=== PATIENT | female | born 1965 | race Two or more races ===

== ENCOUNTER 2016-10-15 20:40 | Emergency (ER) | payer SELFPAY ==
[~2016-10-15] VITALS: Ht 162.6 cm; Wt 72.6 kg
[2016-10-15] MEDS ORDERED: Norco 5mg/325mg tab ORAL ONE (21:15)
--- NOTE | 2016-10-15 21:38 | Emergency Room Report ---
History of Present Illness General Chief Complaint: Lower Extremity Injury Source: Patient Present Illness HPI Is a 51-year-old female with no significant past medical problem. She presents with chief complaint of ankle pain. Onset was acute. She was walking down the steps and missed a step and twisted her ankle. She has swelling to the left lower extremity and ankle. No loss of consciousness. No other injury. Unable to bear weight. Pain is 10 out of 10. She has something is a numbness to that area also. Allergies: Coded Allergies: MORPHINE (Verified Allergy, Unknown, 10/15/16) Patient History Past Medical History: see triage record, old chart reviewed Past Surgical History: other Pertinent Family History: none Social History: Denies: smoking Last Menstrual Period: NOT ANYMORE Now: No Immunizations: other Reviewed Nursing Documentation: PMH: Agreed, PSxH: Agreed Nursing Documentation-PMH Past Medical History: No Stated History Hx Hypertension: Yes Review of Systems Eye: Denies: blurred vision, eye pain ENT: Denies: ear pain, nose congestion, throat swelling Respiratory: Denies: cough, shortness of breath Cardiovascular: Denies: chest pain, palpitations Gastrointestinal: Denies: abdominal pain, diarrhea, nausea, vomiting Musculoskeletal: Reports: joint pain, joint swelling, Denies: back pain Skin: Denies: rash Neurological: Denies: headache, numbness Endocrine: Denies: increased thirst, increased urine Hematologic/Lymphatic: Denies: easy bruising All Other Systems: negative except mentioned in HPI Physical Exam Vital Signs Date Time Temp Pulse Resp B/P Pulse Ox O2 Delivery O2 Flow Rate FiO2 10/15/16 20:44 98.4 83 18 159/95 95 Room Air vitals with hypertension Sp02 EP Interpretation: reviewed, normal General Appearance: well appearing, no apparent distress, alert Head: normocephalic, atraumatic Eyes: bilateral eye EOMI, bilateral eye PERRL ENT: hearing grossly normal, normal pharynx Neck: full range of motion, supple, no meningismus Respiratory: chest non-tender, lungs clear, normal breath sounds Cardiovascular #1: regular rate, rhythm, no murmur Gastrointestinal: normal bowel sounds, non tender, no mass, no organomegaly, no bruit, non-distended Musculoskeletal: back normal, normal range of motion, other - Left lower extremity: She has significant edema to the lateral malleolus and distal tibial area. Tender to palpation. Ankle is grossly stable but limited secondary to pain. Sensation normal. Dorsalis pedis pulses 2+. TTP over base of 5th MT bone. Psychiatric: mood/affect normal Skin: warm/dry Procedures Splinting Splinting : Consent: Verbal Location: Left lower extremity Hand-Made Type: plaster Splint: poserior short Pre-Proc Neuro Vasc Exam: normal Post-Proc Neuro Vasc Exam: normal Patient Tolerated: Well Complications: None Progress crutches given Medical Decision Making Diagnostic Impression: Primary Impression: Displaced fracture of fifth metatarsal bone, left foot, initial encounter for closed fracture Additional Impression: High ankle sprain of left lower extremity Qualified Codes: S93.432A - Sprain of tibiofibular ligament of left ankle, initial encounter ER Course Patient presents with a left fifth metatarsal fracture in height ankle sprain. She splinted. We'll refer her to orthopedic Dr. No evidence of any dislocation. Other X-Ray Diagnostic Results Other X-Ray Diagnostic Results : X-Ray Ordered: X-rays of left foot Date: October 15, 2016 Time: 22:08 EP Interpretation: Yes Findings: no dislocation, other - Comminuted left fifth metatarsal fracture Number of Views: 3 Other Impression x-rays left ankle: interpreted by me. 3 views. soft tissue swelling. Questionable fracture of the fifth metatarsal bone. No dislocation. Last Vital Signs Date Time Temp Pulse Resp B/P Pulse Ox O2 Delivery O2 Flow Rate FiO2 10/15/16 20:44 98.4 83 18 159/95 95 Room Air Status: improved Disposition: HOME, SELF-CARE Condition: Stable Scripts Hydrocodone/Acetaminophen 5-325* (HYDROCODONE/ACETAMINOPHEN 5-325*) 1 Each Tablet 1 TAB ORAL Q6H Y for For Pain, #30 TAB 0 Refills Prov: JUSTO CAT M.D. 10/15/16 Referrals: NOT CHOSEN IPA/,REFERRING (PCP) JUSTO CAT M.D. October 15, 2016 21:38
[2016-10-15] MEDS ORDERED: HYDROCODON-ACE1 EA15 ORAL (22:09)
[2016-10-15 22:45] VITALS: BP 154/100
--- NOTE | 2016-10-17 08:39 | Diagnostic Imaging Report ---
Indication: TRAUMA Technique: 3 views left foot Comparison: none Findings: There are small plantar and calcaneal spurs. There is a comminuted fracture of the distal fifth metatarsal shaft which is minimally displaced. No other acute fractures. No dislocations. There is hallux valgus and bunion formation. Impression: Positive for fifth metatarsal fracture Hallux valgus and bunion formation This agrees with the preliminary interpretation provided by the emergency room physician
--- NOTE | 2016-10-17 08:40 | Diagnostic Imaging Report ---
Indication: TRAUMA Technique: 3 views of the ankle Comparison: none Findings: There is soft tissue swelling over the lateral malleolus. There is a sliver of an ossific density at the tip of the fibula, could represent a small avulsion fracture, age indeterminate. There is a comminuted fracture of the distal fifth metatarsal shaft. No dislocations. There are plantar and calcaneal spurs. Impression: Lateral malleolar soft tissue swelling Equivocal small distal fibular avulsion fracture. Metatarsal fracture-see also separate foot radiograph report Other findings as noted This agrees with the preliminary interpretation provided by the emergency room physician
== END 2016-10-15 22:45 | disposition home or self-care (01) ==
LOC: EMR 21:07
DX: S92.352A Displaced fracture of fifth metatarsal bone, left foot, initial encounter for closed fracture (principal); S93.432A Sprain of tibiofibular ligament of left ankle, initial encounter; W19.XXXA Unspecified fall, initial encounter; Y93.9 Activity, unspecified; Y92.9 Unspecified place or not applicable; Z88.6 Allergy status to analgesic agent; I10 Essential (primary) hypertension
CPT/HCPCS: 29515; 99283; 99284

== ENCOUNTER 2018-07-12 11:40 | Emergency (ER) | payer SELFPAY ==
[~2018-07-12] VITALS: Ht 157.5 cm; Wt 74.8 kg
[~2018-07-12 11:40] MED LIST: HYDROCODON-ACE1 EA15 ORAL
[2018-07-12 11:47] VITALS: BP 134/93
--- NOTE | 2018-07-12 11:57 | NUR ---
ED Nurse Note: Pt from home came in due to rashes and edema on her neck. Pt also c/o abd pain with N/V for a couple of days. Also has body aches, joint pain and fever at home. Pt is AAO x4, ambulatory with non labored breathing.
[2018-07-12] MEDS ORDERED: Sodium Chloride 500ML 500 ML IV ONE (12:15)
[2018-07-12 12:53] LABS: ANION GAP 12 mmol/L (5-15); BLOOD UREA NITROGEN 17 mg/dL (7-18); CALCIUM 9.1 MG/DL (8.5-10.1); CARBON DIOXIDE 25 MMOL/L (21-32); CHLORIDE 99 MMOL/L (98-107); CREATININE 0.8 MG/DL (0.55-1.30); POTASSIUM 3.6 MMOL/L (3.5-5.1); SODIUM 136 MMOL/L (136-145)
[2018-07-12 12:58] LABS: ALANINE AMINOTRANSFERASE 29 U/L (12-78); ALBUMIN 3.9 G/DL (3.4-5.0); ALBUMIN/GLOBULIN RATIO 1.1 (1.0-2.7); ALKALINE PHOSPHATASE 62 U/L (46-116); ASPARTATE AMINO TRANSFERASE 27 U/L (15-37); BILIRUBIN,TOTAL 0.5 MG/DL (0.2-1.0)
--- NOTE | 2018-07-12 13:00 | NUR ---
Ethan luciano in EDM - 07/12/18 at 1402 by BEENA ED Nurse Note: [facility] Still having body aches.
--- NOTE | 2018-07-12 13:00 | NUR ---
ED Nurse Note: Pt ambulated to the restroom with steady gait. Still having body aches.
[2018-07-12 13:06] LABS: APPEARANCE,URINE SLIGHTLY CLOUDY; BILIRUBIN, URINE NEGATIVE (NEGATIVE); COLOR,URINE BROWN; GLUCOSE, URINE (UA) NEGATIVE (NEGATIVE); KETONES,URINE 1+ (NEGATIVE); LEUKOCYTE ESTERASE ,URINE 3+ (NEGATIVE); NITRITE,URINE POSITIVE (NEGATIVE); PH,URINE 6 (4.5-8.0); PROTEIN,URINE 2+ (NEGATIVE); UROBILINOGEN,URINE 1 MG/DL (0.0-1.0)
[2018-07-12 13:16] LABS: HEMATOCRIT 39.5 % (37.0-47.0); HEMOGLOBIN 13.8 G/DL (12.0-16.0); MEAN CORPUSCULAR VOLUME 86 FL (80-99); PLATELET COUNT 203 K/UL (150-450); RED BLOOD COUNT 4.59 M/UL (4.20-5.40); RED CELL DISTRIBUTION WIDTH 11.9 % (11.6-14.8); WHITE BLOOD COUNT 3.2 K/UL (4.8-10.8)
--- NOTE | 2018-07-12 13:43 | Emergency Room Report ---
History of Present Illness General Chief Complaint: General Complaint Source: Patient Present Illness HPI 53-year-old female with no significant past medical history here complaining of 2 days of multiple bouts of non-bloody vomiting and diarrhea with diffuse abdominal pain. patient reports that her symptoms started 2 days ago after eating a home-cooked meal complaining of chills and fever. She further complains of cough with some clear phlegm. Denies SOB, wheezing, chest pain, dizziness and headache. She has been able to take oral hydration and some solid food. She also noticed a very pruritic rash on her neck this morning. Denies difficulty swallowing, denies difficulty breathing, denies coming in contact with any allergens such as new soap or detergent. Denies any food allergy.Denies dysuria, urinary frequency and hematuria Allergies: Coded Allergies: MORPHINE (Verified Allergy, Unknown, 10/15/16) Patient History Past Medical History: see triage record Past Surgical History: unable to obtain Pertinent Family History: none Last Menstrual Period: none Now: No Immunizations: UTD Reviewed Nursing Documentation: PMH: Agreed; PSxH: Agreed Nursing Documentation-PMH Past Medical History: No History, Except For Hx Hypertension: Yes Review of Systems All Other Systems: negative except mentioned in HPI Physical Exam Vital Signs Date Time Temp Pulse Resp B/P (MAP) Pulse Ox O2 Delivery O2 Flow Rate FiO2 07/12/18 11:47 99.0 18 134/93 99 Room Air 07/12/18 11:47 93 Sp02 EP Interpretation: reviewed, normal General Appearance: normal inspection, well appearing, no apparent distress Head: normocephalic, atraumatic Eyes: bilateral eye normal inspection, bilateral eye PERRL ENT: normal ENT inspection, hearing grossly normal, normal pharynx, no angioedema, normal voice, other - airway is clear and no anaphylaxis noted Neck: normal inspection, full range of motion, supple Respiratory: normal inspection, chest non-tender, lungs clear, normal breath sounds, no rhonchi, no wheezing Cardiovascular #1: normal inspection, normal peripheral pulses, regular rate, rhythm, no gallop, no murmur Gastrointestinal: normal inspection, normal bowel sounds, non tender, soft, no mass, no peritonitis, no guarding, other - McBurney's and off symptoms negative Rectal: deferred Genitourinary: no CVA tenderness Musculoskeletal: normal inspection, back normal Neurologic: normal inspection, alert, oriented x3 Psychiatric: normal inspection, judgement/insight normal Skin: normal inspection, normal color, no rash, warm/dry, well hydrated, normal turgor Lymphatic: normal inspection, no adenopathy Medical Decision Making PA Attestation DIAGNOSES AND TREATMENT PLANS ARE REVIEWED AND DISCUSSED WITH MY SUPERVISING PHYSICIAN DR. Mike Diagnostic Impression: Primary Impression: Influenza A Additional Impressions: Allergic dermatitis due ingested food UTI (urinary tract infection) ER Course 53-year-old female with no significant past medical history here complaining of 2 days of multiple bouts of non-bloody vomiting and diarrhea with diffuse abdominal pain. patient reports that her symptoms started 2 days ago after eating a home-cooked meal complaining of chills and fever. She further complains of cough with some clear phlegm. Denies SOB, wheezing, chest pain, dizziness and headache. She has been able to take oral hydration and some solid food. She also noticed a very pruritic rash on her neck this morning. Denies difficulty swallowing, denies difficulty breathing, denies coming in contact with any allergens such as new soap or detergent. Denies any food allergy.Denies dysuria, urinary frequency and hematuria Ddx considered but are not limited to a influenza A, viral gastroenteritis, appendicitis, allergic dermatitis, anaphylaxis, UTI Vital signs: are WNL, pt. is afebrile H&PE are most consistent with viral gastroenteritis secondary to influenza A trauma allergic dermatitis, UTI asymptomatic and no treatment needed follow up with her primary care provider for UTI if symptoms ORDERS: IV fluids, CBC, CMP, UA, influenza swab, Zofran,Tamiflu, Robitussin, hydrocortisone cream ED INTERVENTIONS:IV fluid DISCHARGE: At this time pt. is stable for d/c to home. Will provide printed patient care instructions, and any necessary prescriptions. Care plan and follow up instructions have been discussed with the patient prior to discharge. positive influenza A positive leuks; says a urine however asymptomatic Last Vital Signs Date Time Temp Pulse Resp B/P (MAP) Pulse Ox O2 Delivery O2 Flow Rate FiO2 07/12/18 11:57 93 18 Room Air 07/12/18 11:47 99.0 134/93 99 Disposition: HOME, SELF-CARE Condition: Stable Scripts Dextromethorphan Hbr/Chlor-Mal (ROBITUSSIN LONG-ACTING LIQ) 118 Ml Liquid 5 ML PO TID, #118 ML Prov: Veronica Gan 07/12/18 Hydrocortisone (Hydrocortisone Cream 2.5%) Y Cream.appl 1 APPLIC TP BID, #40 GM Prov: Veronica Gan 07/12/18 Oseltamivir Phosphate (Tamiflu) 75 Mg Capsule 75 MG ORAL TWICE A DAY for 5 Days, #10 CAP Prov: Veronica Gan 07/12/18 Ondansetron (Zofran) 4 Mg Tablet 4 MG ORAL Q6H PRN for Nausea & Vomiting, #20 TAB Prov: Veronica Gan 07/12/18 Patient Instructions: Contact Dermatitis, [id number], Urinary Tract Infection , [id number], Viral Gastroenteritis, Adult, [id number] Additional Instructions: follow with primary care provider if the rash continues to be seen by an blogs manager or black topper, banana rice piece of toast applesauce is advised to stay away from spicy and acidic foods and drink a lot of electrolyte water. Veronica Gan Jul 12, 2018 13:43
[2018-07-12] MEDS ORDERED: HYDROCORTISONE30 G2 TP (13:46)
[2018-07-12] MEDS ORDERED: TAMIFLU75 MG ORAL (13:46)
[2018-07-12] MEDS ORDERED: ZOFRAN4 M1 ORAL (13:46)
[2018-07-12] MEDS ORDERED: ROBITUSSIN LON118 ML PO (13:46)
[2018-07-12 13:57] VITALS: BP 134/96
--- NOTE | 2018-07-12 13:57 | NUR ---
ED Nurse Note: Pt cleared by ER MD for discharge. ACI/prescription was given and explained to pt and verbalized understanding of teachings. All medical devices such as ID band/IV removed. Pt is AAO x4, ambulatory and left with all personal belongings.
== END 2018-07-12 13:57 | disposition home or self-care (01) ==
LOC: EMR 12:26
DX: J10.1 Influenza due to other identified influenza virus with other respiratory manifestations (principal); L27.2 Dermatitis due to ingested food; N39.0 Urinary tract infection, site not specified; I10 Essential (primary) hypertension; Z88.5 Allergy status to narcotic agent
CPT/HCPCS: 36415; 80053; 81001; 85007; 85025; 86710; 87086; 99284

== ENCOUNTER 2019-09-23 10:04 | Emergency (ER) | payer SELFPAY ==
[~2019-09-23] VITALS: Ht 162.6 cm; Wt 67.1 kg
[~2019-09-23 10:04] MED LIST changes: +HYDROCORTISONE30 G2 TP; +ROBITUSSIN LON118 ML PO; +TAMIFLU75 MG ORAL; +ZOFRAN4 M1 ORAL
--- NOTE | 2019-09-23 10:20 | NUR ---
ED Nurse Note: Pt ambulated to ED d/t lower abdominal pain with nausea for 2 days. Pt is AOx4. Pt denies any vomiting; diarrhea nor coughing. VSS, on RA, afebrile on triage. Placed on bed and gown; awaiting for ERMD.
[2019-09-23 10:30] VITALS: BP 150/82
--- NOTE | 2019-09-23 10:38 | NUR ---
ED Nurse Note: Dr. Rios at bedside.
--- NOTE | 2019-09-23 10:42 | Emergency Room Report ---
History of Present Illness General Chief Complaint: Abdominal Pain Source: Patient Present Illness HPI Patient presents with complaints of lower suprapubic bilateral abdominal discomfort started 3 days ago patient reports some increased nausea Denies any Vomiting denies any diarrhea denies any fevers or chills Denies any chest pain or shortness of breath patient Reports the pain is 6 out of 10 sharp and cramping also radiates Along bilateral inguinal region towards the back Cramping in nature Allergies: Coded Allergies: MORPHINE (Verified Allergy, Unknown, 10/15/16) COVID-19 Screening Contact w/high risk pt: No Recent Travel to affected area: No Experienced COVID-19 symptoms?: No Patient History Past Medical History: see triage record Last Menstrual Period: menopausal Now: No Reviewed Nursing Documentation: PMH: Agreed; PSxH: Agreed Nursing Documentation-PMH Past Medical History: No History, Except For Hx Hypertension: Yes Review of Systems All Other Systems: negative except mentioned in HPI Physical Exam Vital Signs Date Time Temp Pulse Resp B/P (MAP) Pulse Ox O2 Delivery O2 Flow Rate FiO2 09/23/19 10:12 98.8 86 16 150/82 (104) 95 Room Air Sp02 EP Interpretation: reviewed, normal General Appearance: well appearing, no apparent distress Head: normocephalic, atraumatic Eyes: bilateral eye PERRL, bilateral eye EOMI ENT: hearing grossly normal, normal pharynx, TMs + canals normal, uvula midline Neck: full range of motion, supple, no meningismus, no bony tend Respiratory: lungs clear, normal breath sounds, no rhonchi, no respiratory distress, no retraction, no accessory muscle use Cardiovascular #1: normal peripheral pulses, regular rate, rhythm, no edema, no gallop, no JVD, no murmur Gastrointestinal: normal bowel sounds, non tender - On palpation however patient subjectively points to the suprapubic region, soft, no mass, no organomegaly, non-distended, no guarding, no hernia, no pulsatile mass, no rebound Genitourinary: no CVA tenderness Musculoskeletal: normal inspection Neurologic: motor strength/tone normal, audit partner III-XII nml as tested, oriented x3 , sensory intact, responsive Psychiatric: mood/affect normal Skin: no rash Lymphatic: normal inspection, no adenopathy Medical Decision Making Diagnostic Impression: Primary Impression: UTI (urinary tract infection) Additional Impression: Abdominal pain ER Course With the history exam and presentation, multiple differentials considered, including but not limited to appendicitis, gastritis, cholecystitis, diverticulitis other differential such as UTI Fibroids, ovarian torsion also entertained patient's urine sample does show evidence of UTI Ultrasound also showing questionable fibroids Patient placed on oral antibiotics and will have initial conservative outpatient trial Labs Test 09/23/19 10:45 White Blood Count 9.6 K/UL (4.8-10.8) Red Blood Count 5.02 M/UL (4.20-5.40) Hemoglobin 14.7 G/DL (12.0-16.0) Hematocrit 41.5 % (37.0-47.0) Mean Corpuscular Volume 83 FL (80-99) Mean Corpuscular Hemoglobin 29.3 PG (27.0-31.0) Mean Corpuscular Hemoglobin Concent 35.5 G/DL (32.0-36.0) Red Cell Distribution Width 11.8 % (11.6-14.8) Platelet Count 259 K/UL (150-450) Mean Platelet Volume 6.2 FL (6.5-10.1) Neutrophils (%) (Auto) 73.9 % (45.0-75.0) Lymphocytes (%) (Auto) 17.1 % (20.0-45.0) Monocytes (%) (Auto) 5.1 % (1.0-10.0) Eosinophils (%) (Auto) 2.9 % (0.0-3.0) Basophils (%) (Auto) 0.9 % (0.0-2.0) Urine Color Yellow Urine Appearance Clear Urine pH 5 (4.5-8.0) Urine Specific [place] 1.020 (1.005-1.035) Urine Protein 2+ (NEGATIVE) Urine Glucose (UA) Negative (NEGATIVE) Urine Ketones Negative (NEGATIVE) Urine Blood 3+ (NEGATIVE) Urine Nitrite Negative (NEGATIVE) Urine Bilirubin Negative (NEGATIVE) Urine Urobilinogen Normal MG/DL (0.0-1.0) Urine Leukocyte Esterase 1+ (NEGATIVE) Urine RBC 2-4 /HPF (0 - 2) Urine WBC 5-10 /HPF (0 - 2) Urine Squamous Epithelial Cells Few /LPF (NONE/OCC) Urine Bacteria Few /HPF (NONE) Urine Mucus Few /LPF (NONE/OCC) Sodium Level 138 MMOL/L (136-145) Potassium Level 3.7 MMOL/L (3.5-5.1) Chloride Level 102 MMOL/L (98-107) Carbon Dioxide Level 24 MMOL/L (21-32) Blood Urea Nitrogen 11 mg/dL (7-18) Creatinine 0.6 MG/DL (0.55-1.30) Estimat Glomerular Filtration Rate > 60 mL/min (>60) Glucose Level 103 MG/DL (74-106) Calcium Level 9.0 MG/DL (8.5-10.1) Total Bilirubin 0.5 MG/DL (0.2-1.0) Aspartate Amino Transf (AST/SGOT) 13 U/L (15-37) Alanine Aminotransferase (ALT/SGPT) 26 U/L (12-78) Alkaline Phosphatase 83 U/L (46-116) Total Protein 7.5 G/DL (6.4-8.2) Albumin 3.8 G/DL (3.4-5.0) Globulin 3.7 g/dL Albumin/Globulin Ratio 1.0 (1.0-2.7) Lipase 88 U/L (73-393) CT/MRI/US Diagnostic Results CT/MRI/US Diagnostic Results : Impression Transvaginal/pelvic: ultrasoundImpression: Heterogeneous uterine echo texture without discrete focal abnormality. Significance uncertain, but it represent diffuse fibroid changes. Fluid within the endometrial cavity. This is nonspecific, could indicate old blood among other possibilities Small amount of free pelvic fluid. Not necessarily physiologic in a postmenopausal female Nonvisualized right ovary Incidental finding cervical nabothian cyst Last Vital Signs Date Time Temp Pulse Resp B/P (MAP) Pulse Ox O2 Delivery O2 Flow Rate FiO2 09/23/19 10:30 86 16 Room Air 09/23/19 10:30 98.8 150/82 95 Status: improved Disposition: HOME, SELF-CARE Condition: Improved Scripts Ibuprofen* (MOTRIN*) 600 Mg Tablet 600 MG ORAL Q8H PRN for FOR PAIN, #20 TAB 0 Refills Prov: Jeannine Rios DO 09/23/19 Cephalexin* (KEFLEX*) 500 Mg Capsule 500 MG ORAL EVERY 6 HOURS for 7 Days, CAP Prov: Jeannine Rios DO 09/23/19 Referrals: NON PHYSICIAN (PCP) Additional Instructions: Patient is provided with the discharge instructions notified to follow up with primary doctor in the next 2-3 days otherwise return to the er with any worsening symptoms. Please note that this report is being documented using [employer] technology. This can lead to erroneous entry secondary to incorrect interpretation by the dictating instrument. Jeannine Rios DO Sep 23, 2019 10:41
[2019-09-23] MEDS ORDERED: Ketorolac 30mg Inj IV ONE (10:45)
--- NOTE | 2019-09-23 10:55 | NUR ---
ED Nurse Note: US tech at bedside.
[2019-09-23 11:06] LABS: APPEARANCE,URINE CLEAR; BILIRUBIN, URINE NEGATIVE (NEGATIVE); GLUCOSE, URINE (UA) NEGATIVE (NEGATIVE); KETONES,URINE NEGATIVE (NEGATIVE); LEUKOCYTE ESTERASE ,URINE 1+ (NEGATIVE); NITRITE,URINE NEGATIVE (NEGATIVE); PH,URINE 5 (4.5-8.0); PROTEIN,URINE 2+ (NEGATIVE); UROBILINOGEN,URINE NORMAL MG/DL (0.0-1.0)
[2019-09-23 11:10] LABS: BASOPHILS % (AUTO) 0.9 % (0.0-2.0); EOSINOPHILS % (AUTO) 2.9 % (0.0-3.0); HEMATOCRIT 41.5 % (37.0-47.0); HEMOGLOBIN 14.7 G/DL (12.0-16.0); LYMPHOCYTES % (AUTO) 17.1 % (20.0-45.0); MEAN CORPUSCULAR VOLUME 83 FL (80-99); MONOCYTES % (AUTO) 5.1 % (1.0-10.0); NEUTROPHILS % (AUTO) 73.9 % (45.0-75.0); PLATELET COUNT 259 K/UL (150-450); RED BLOOD COUNT 5.02 M/UL (4.20-5.40); RED CELL DISTRIBUTION WIDTH 11.8 % (11.6-14.8); WHITE BLOOD COUNT 9.6 K/UL (4.8-10.8)
[2019-09-23 11:15] LABS: COLOR,URINE YELLOW
[2019-09-23 11:24] LABS: ALANINE AMINOTRANSFERASE 26 U/L (12-78); ALBUMIN 3.8 G/DL (3.4-5.0); ALKALINE PHOSPHATASE 83 U/L (46-116); ASPARTATE AMINO TRANSFERASE 13 U/L (15-37); BILIRUBIN,TOTAL 0.5 MG/DL (0.2-1.0); BLOOD UREA NITROGEN 11 mg/dL (7-18); CARBON DIOXIDE 24 MMOL/L (21-32); CHLORIDE 102 MMOL/L (98-107); CREATININE 0.6 MG/DL (0.55-1.30); POTASSIUM 3.7 MMOL/L (3.5-5.1); SODIUM 138 MMOL/L (136-145)
[2019-09-23] MEDS ORDERED: Cephalexin 500mg cap ORAL ONE (11:30)
[2019-09-23] MEDS ORDERED: CEPHALEXIN500 MG ORAL (11:50)
[2019-09-23] MEDS ORDERED: IBUPROFEN600 M1 ORAL (11:50)
[2019-09-23 11:56] VITALS: BP 138/87
--- NOTE | 2019-09-23 11:56 | Diagnostic Imaging Report ---
Indication: Pelvic pain, postmenopausal patient, history of tubal ligation 20 years ago Technique: Transabdominal and transvaginal images of the pelvis Comparison: none Findings: Transabdominal portion of the exam is limited due to lack of urinary bladder distention and overlying bowel gas. Uterus measures 6 cm length by 2.8 cm AP. The endometrium measures 3 mm thick. Small fluid collection is seen within the endometrium. There is a cervical nabothian cyst. The uterine echotexture is heterogeneous without definite discrete/focal abnormality. The left ovary measures 2 cm length. The right ovary cannot be visualized. There is a small amount of free pelvic fluid Impression: Heterogeneous uterine echo texture without discrete focal abnormality. Significance uncertain, but it represent diffuse fibroid changes. Fluid within the endometrial cavity. This is nonspecific, could indicate old blood among other possibilities Small amount of free pelvic fluid. Not necessarily physiologic in a postmenopausal female Nonvisualized right ovary Incidental finding cervical nabothian cyst
--- NOTE | 2019-09-23 11:56 | NUR ---
ER DISCHARGE NOTE: Patient is cleared to be discharged per ERMD, pt is aox4, on room air, with stable vital signs. pt was given dc and prescription instructions, pt was able to verbalize understanding, pt id band and iv site removed without complications. pt is able to ambulate with steady gait. pt took all belongings.
== END 2019-09-23 11:56 | disposition home or self-care (01) ==
LOC: EMR 10:34
DX: N39.0 Urinary tract infection, site not specified (principal); R10.30 Lower abdominal pain, unspecified; Z88.6 Allergy status to analgesic agent; I10 Essential (primary) hypertension; N88.8 Other specified noninflammatory disorders of cervix uteri
CPT/HCPCS: 36415; 76830; 76857; 80053; 81003; 83690; 85025; 96374; 96375; 99284; J1885; J2405

== ENCOUNTER 2020-07-02 12:12 | Emergency (ER) | payer MEDICAID ==
[~2020-07-02] VITALS: Ht 162.6 cm; Wt 68.9 kg
[~2020-07-02 12:12] MED LIST changes: +CEPHALEXIN500 MG ORAL; +IBUPROFEN600 M1 ORAL
[2020-07-02 12:18] VITALS: BP 135/82
--- NOTE | 2020-07-02 12:37 | NUR ---
ED Nurse Note: Pt. AAOx4. Ambulatory. pt. walked in to er from with L-side CP radiating to her L-arm. 100.5 oral temp at triage. cough x 1 day. 94% RA. Pt. reported her son is covid positive
--- NOTE | 2020-07-02 12:39 | Emergency Room Report ---
History of Present Illness General Chief Complaint: Chest Pain Source: Patient Present Illness HPI Patient presents with left-sided chest pain that began this morning. She felt it at rest. She also also developed a cough over the last day. She was exposed to COVID-19 in her son 3 weeks ago. She has not tested herself recently. She vomited this morning with some yellow bile without blood. She denies any diarrhea. She rates the pain 9/10 in her chest. This is not exertional. It is somewhat positional and pleuritic. It does not radiate. She is anxious due to these symptoms H/O HTN No sore throat, palpitations, dysuria, abdominal pain, shortness of breath, joint pain, rashes, visual changes, dizziness, headache. 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 Nursing Documentation: PMH: Agreed; PSxH: Agreed Nursing Documentation-PMH Hx Hypertension: Yes Review of Systems All Other Systems: negative except mentioned in HPI Physical Exam Vital Signs Date Time Temp Pulse Resp B/P (MAP) Pulse Ox O2 Delivery O2 Flow Rate FiO2 07/02/20 12:18 100.6 108 19 135/82 (99) 94 Room Air Sp02 EP Interpretation: reviewed, normal General Appearance: well appearing, no apparent distress, GCS 15, non-toxic Head: normocephalic Eyes: bilateral eye normal inspection, bilateral eye PERRL, bilateral eye EOMI ENT: normal pharynx, moist mucus membranes Neck: supple Respiratory: chest non-tender, lungs clear, normal breath sounds Cardiovascular #1: regular rate, rhythm Cardiovascular #2: 2+ radial (R) Gastrointestinal: normal inspection, normal bowel sounds, non tender, no mass, non-distended Musculoskeletal: back normal, normal range of motion, no calf tenderness, gai t/station normal Neurologic: alert, oriented x3, grossly normal Psychiatric: anxious Skin: no rash, warm/dry Medical Decision Making Diagnostic Impression: Primary Impression: COVID-19 Additional Impression: Chest pain Qualified Codes: R07.9 - Chest pain, unspecified ER Course Patient presents with fever and chest pain with recent exposure to Covid. Differential includes acute myocardial infarction, pneumonia, COVID-19 pneumonia, pneumothorax, pulmonary embolus amongst others. Patient evaluated with EKG, chest x-ray and labs. 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 Patient given Tylenol and aspirin. Nl WBC. Sodium and K slightly low. Glucose min elevated. COVID + Due to risk factors and moderate disease (early on) ordered bamlanivimab. Discussed risk and benefits with patient. Pain improved with treatment. Patient receiving BAM without difficulty. Signed out to Dr. Tate for observation. Laboratory Tests Test 07/02/20 12:25 07/02/20 12:40 07/02/20 13:25 Lactic Acid Level 0.90 mmol/L (0.4-2.0) White Blood Count 5.1 K/UL (4.8-10.8) Red Blood Count 4.63 M/UL (4.20-5.40) Hemoglobin 13.1 G/DL (12.0-16.0) Hematocrit 39.0 % (37.0-47.0) Mean Corpuscular Volume 84 FL (80-99) Mean Corpuscular Hemoglobin 28.3 PG (27.0-31.0) Mean Corpuscular Hemoglobin Concent 33.6 G/DL (32.0-36.0) Red Cell Distribution Width 13.0 % (11.6-14.8) Platelet Count 186 K/UL (150-450) Mean Platelet Volume 7.7 FL (6.5-10.1) Neutrophils (%) (Auto) 71.0 % (45.0-75.0) Lymphocytes (%) (Auto) 16.6 % (20.0-45.0) L Monocytes (%) (Auto) 11.4 % (1.0-10.0) H Eosinophils (%) (Auto) 0.5 % (0.0-3.0) Basophils (%) (Auto) 0.5 % (0.0-2.0) Prothrombin Time 10.7 SEC (9.30-11.50) Prothrombin Time INR 1.0 (0.9-1.1) Activated Partial Thromboplast Time 27 SEC (23-33) D-Dimer 0.29 mg/L FEU (0.00-0.49) Sodium Level 134 MMOL/L (136-145) L Potassium Level 3.1 MMOL/L (3.5-5.1) L Chloride Level 98 MMOL/L (98-107) Carbon Dioxide Level 26 MMOL/L (21-32) Anion Gap 10 mmol/L (5-15) Blood Urea Nitrogen 12 mg/dL (7-18) Creatinine 0.7 MG/DL (0.55-1.30) Estimated Glomerular Filtration Rate > 60 mL/min (>60) Glucose Level 134 MG/DL (74-106) H Calcium Level 8.4 MG/DL (8.5-10.1) L Magnesium Level 2.0 MG/DL (1.8-2.4) Ferritin 383 NG/ML (8-388) Total Bilirubin 0.7 MG/DL (0.2-1.0) Aspartate Amino Transferase (AST) 34 U/L (15-37) Alanine Aminotransferase (ALT) 38 U/L (12-78) Alkaline Phosphatase 71 U/L (46-116) Lactate Dehydrogenase 234 U/L (81-234) Total Creatine Kinase 63 U/L (26-308) Troponin I 0.003 ng/mL (0.000-0.056) C-Reactive Protein, Quantitative 4.8 mg/dL (0.00-0.90) H Pro-B-Type Natriuretic Peptide 35 pg/mL (0-125) Total Protein 7.3 G/DL (6.4-8.2) Albumin 3.5 G/DL (3.4-5.0) Globulin 3.8 g/dL Albumin/Globulin Ratio 0.9 (1.0-2.7) L Lipase 183 U/L (73-393) Urine Color Yellow Urine Appearance Clear Urine pH 6.5 (4.5-8.0) Urine Specific [place] 1.005 (1.005-1.035) Urine Protein 1+ (NEGATIVE) H Urine Glucose (UA) Negative (NEGATIVE) Urine Ketones 2+ (NEGATIVE) H Urine Blood 1+ (NEGATIVE) H Urine Nitrite Negative (NEGATIVE) Urine Bilirubin Negative (NEGATIVE) Urine Urobilinogen 4 MG/DL (0.0-1.0) H Urine Leukocyte Esterase 1+ (NEGATIVE) H Urine RBC 0-2 /HPF (0 - 2) Urine WBC 5-10 /HPF (0 - 2) H Urine Squamous Epithelial Cells Moderate /LPF (NONE/OCC) H Urine Bacteria Few /HPF (NONE) Microbiology Date/Time Source Procedure Growth Status 07/02/20 14:15 Nasopharynx SARS-CoV-2 RdRp Gene Assay - Final Complete EKG Diagnostic Results Rate: normal Rhythm: NSR ST Segments: no acute changes Rhythm Strip Diag. Results EP Interpretation: yes Rhythm: NSR, no PVC's, no ectopy, other - 99 Chest X-Ray Diagnostic Results Chest X-Ray Diagnostic Results : Chest X-Ray Ordered: Yes # of Views/Limited/Complete: 1 View Indication: Chest Pain EP Interpretation: Yes Interpretation: no consolidation, no effusion, no pneumothorax Impression: No acute disease Electronically Signed by: Electronically signed by Song Mike MD Last Vital Signs Date Time Temp Pulse Resp B/P (MAP) Pulse Ox O2 Delivery O2 Flow Rate FiO2 07/02/20 18:25 98.3 89 14 137/80 97 Room Air Status: improved Disposition: HOME, SELF-CARE Condition: Improved Scripts Guaifenesin/Codeine Phos* (ROBITUSSIN AC*) 118 Ml Liquid 5 ML ORAL Q6H PRN for For Cough, #60 ML 0 Refills Prov: Song Mike MD 07/02/20 Acetaminophen (Tylenol) 325 Mg Tablet 650 MG ORAL Q6H PRN for Prn Pain/Headache/Temp > 101, #20 TAB 0 Refills Prov: Song Mike MD 07/02/20 Song Mike MD Jul 02, 2020 12:39
[2020-07-02] MEDS ORDERED: Aspirin Baby 81mg ORAL ONE (12:45)
[2020-07-02] MEDS ORDERED: Acetaminophen 500mg (ES) tab ORAL ONE (12:45)
--- NOTE | 2020-07-02 13:21 | Diagnostic Imaging Report ---
EXAM: XR Chest, 1 View CLINICAL HISTORY: CP TECHNIQUE: Frontal view of the chest. COMPARISON: No relevant prior studies available. FINDINGS: Lungs: Unremarkable. No consolidation. Pleural space: Unremarkable. No pneumothorax. Heart: Unremarkable. No cardiomegaly. Mediastinum: Unremarkable. Bones/joints: Mild degenerative changes. IMPRESSION: No evidence of acute pulmonary disease.
[2020-07-02 13:28] LABS: BASOPHILS % (AUTO) 0.5 % (0.0-2.0); EOSINOPHILS % (AUTO) 0.5 % (0.0-3.0); HEMOGLOBIN 13.1 G/DL (12.0-16.0); LYMPHOCYTES % (AUTO) 16.6 % (20.0-45.0); MEAN CORPUSCULAR VOLUME 84 FL (80-99); MONOCYTES % (AUTO) 11.4 % (1.0-10.0); PLATELET COUNT 186 K/UL (150-450); RED BLOOD COUNT 4.63 M/UL (4.20-5.40); WHITE BLOOD COUNT 5.1 K/UL (4.8-10.8)
[2020-07-02 13:31] LABS: APPEARANCE,URINE CLEAR; BILIRUBIN, URINE NEGATIVE (NEGATIVE); GLUCOSE, URINE (UA) NEGATIVE (NEGATIVE); KETONES,URINE 2+ (NEGATIVE); LEUKOCYTE ESTERASE ,URINE 1+ (NEGATIVE); NITRITE,URINE NEGATIVE (NEGATIVE); PH,URINE 6.5 (4.5-8.0); PROTEIN,URINE 1+ (NEGATIVE); UROBILINOGEN,URINE 4 MG/DL (0.0-1.0)
[2020-07-02 13:34] LABS: COLOR,URINE YELLOW
[2020-07-02 13:41] LABS: ANION GAP 10 mmol/L (5-15); BLOOD UREA NITROGEN 12 mg/dL (7-18); CALCIUM 8.4 MG/DL (8.5-10.1); CARBON DIOXIDE 26 MMOL/L (21-32); CHLORIDE 98 MMOL/L (98-107); CREATININE 0.7 MG/DL (0.55-1.30); POTASSIUM 3.1 MMOL/L (3.5-5.1); SODIUM 134 MMOL/L (136-145)
[2020-07-02 13:56] LABS: ALANINE AMINOTRANSFERASE 38 U/L (12-78); ALBUMIN 3.5 G/DL (3.4-5.0); ALBUMIN/GLOBULIN RATIO 0.9 (1.0-2.7); ALKALINE PHOSPHATASE 71 U/L (46-116); ASPARTATE AMINO TRANSFERASE 34 U/L (15-37); BILIRUBIN,TOTAL 0.7 MG/DL (0.2-1.0); CREATINE KINASE 63 U/L (26-308); FERRITIN 383 NG/ML (8-388); LACTATE DEHYDROGENASE 234 U/L (81-234)
[2020-07-02] MEDS ORDERED: Bamlanivimab 700 MG in NS 275 ML IVPB SCH (14:30)
[2020-07-02] MEDS ORDERED: Bamlanivimab Fact Sheet MISC ONE (14:30)
[2020-07-02] MEDS ORDERED: TYLENOL325 MG ORAL (14:41)
[2020-07-02] MEDS ORDERED: GUAIFENESIN-CO118 M1 ORAL (14:41)
--- NOTE | 2020-07-02 16:34 | NUR ---
ED Nurse Note: pt. is awake and not in any distress while getting the infusion
[2020-07-02 18:25] VITALS: BP 137/80
== END 2020-07-02 18:25 | disposition home or self-care (01) ==
LOC: EMR 13:01
DX: U07.1 COVID-19 (principal); R07.9 Chest pain, unspecified; R11.10 Vomiting, unspecified; I10 Essential (primary) hypertension; Z88.5 Allergy status to narcotic agent
CPT/HCPCS: 36415; 71045; 80053; 81003; 82550; 82728; 83605; 83615; 83690; 83735; 83880; 84484; 85025; 85379; 85610; 85730; 86140; 93005; 96365; J7050; Q0239; U0002; Z7502; 99284; J8499